=== PATIENT | male | born 1980 | race Asian ===

== ENCOUNTER 2019-06-10 21:08 | Inpatient (IN) | payer OTHER ==
--- NOTE | 2019-06-10 21:34 | PDOC ---
Rapid Medical Evaluation Medical Evaluation: I have performed a brief in-person evaluation of this patient. The patient presents with a chief complaint of: sent by urologist Dr. Gracia for admission for surgery for L kidney stones; had CT A/P done today showing 5x7x11 mm stone in L ureter (patient has report with him); of note, Dr. Claudio welch called and states patient is scheduled for surgery tomorrow at 8 AM Pertinent physical exam findings: In NAD I have ordered the following: Labs, IVF The patient will proceed to the ED for further evaluation. 06/10/19 21:30 Discharge Disposition - Referrals Referrals: Felipe Gracia MD [Primary Care Provider] - - Patient Instructions - Post Discharge Activity
[2019-06-10 21:35] VITALS: BMI 28.2
[2019-06-10] MEDS ORDERED: SODIUM CHLORIDE 1,000 ML IV STA (21:35)
[2019-06-10 22:08] LABS: BASO % 0.7 % (0-2.0); EOS % 0.3 % (0-4.5); HEMATOCRIT 44.7 % (35.4-49); LYMPH % 16.3 % (8-40); MCH 30.9 pg (25.7-33.7); MCHC 33.5 g/dl (32.0-35.9); MEAN CELL VOLUME 92.3 fl (80-96); MEAN PLT VOLUME 7.1 fl (7.5-11.1); MONO % 11.3 % (3.8-10.2); NEUT % 71.4 % (42.8-82.8); PLATELET COUNT 256 K/MM3 (134-434); RBC 4.85 M/mm3 (4.00-5.60); RDW 12.4 % (11.9-15.9); WHITE BLOOD COUNT 11.7 K/mm3 (4.0-10.0)
[2019-06-10 22:32] LABS: BILIRUBIN,TOTAL 0.6 mg/dL (0.2-1); BLOOD UREA NITROGEN 14.1 mg/dL (7-18); CREATININE 1.6 mg/dL (0.55-1.3); POTASSIUM 3.8 mmol/L (3.5-5.1); TOT PROT 7.1 g/dl (6.4-8.2)
--- NOTE | 2019-06-10 22:33 | PDOC ---
History of Present Illness - General Chief Complaint: Urinary Problem Stated Complaint: REF'D BY PCP Time Seen by Provider: 06/10/19 21:30 - History of Present Illness Initial Comments: 06/10/19 22:26 CHIEF COMPLAINT: admission for operatoin HISTORY OF PRESENT ILLNESS: 39 yo M with hx of prediabetes (on Meformin) sent to ED by urology Samia for operation tomorrow. Patient was seen at [facility] this morning at 2am and diagnosed with a kidney stone measuring [id number] to L kidney. He was referred to Dr. Gracia whom he saw today, and was told by Dr. Gracia to come to this ER to be admitted for stone removal tomorrow .Patient reports taking Percocet for pain with relief. Patient reports vomiting twice this morning, otherwise no other symptoms. Patient's PCP is in [place] No recent travel or sick contacts. PAST MEDICAL HISTORY: Denies past medical history FAMILY HISTORY: Denies SOCIAL HISTORY: Denies tobacco, alcohol, illicit drug use. SURGICAL HISTORY: Denies ALLERGIES: No known drug allergies REVIEW OF SYSTEMS General/Constitutional: Denies fever or chills. Denies weakness, weight change. HEENT: Denies change in vision. Denies ear pain or discharge. Denies sore throat. Cardiovascular: Denies chest pain or shortness of breath. Respiratory: Denies cough, wheezing, or hemoptysis. Gastrointestinal:Two episodes of vomiting this morning, none at this time. Denies diarrhea or constipation. Denies rectal bleeding. Genitourinary: Denies dysuria, frequency, or change in urination. Musculoskeletal: Denies joint or muscle swelling or pain. Denies neck or back pain. Skin and breasts: Denies rash or easy bruising. Neurologic: Denies headache, vertigo, loss of consciousness, or loss of sensation. Psychiatric: Denies depression or anxiety. PHYSICAL EXAM General Appearance: Well-appearing, appropriately dressed. No apparent distress , no intoxication. HEENT: EOMI, PERRLA, normal ENT inspection, normal voice, TMs normal, pharynx normal. No conjunctival pallor. No photophobia, scleral icterus. Neck: Supple. Trachea midline. No tenderness, rigidity, carotid bruit, stridor , lymphadenopathy, or thyromegaly. Respiratory/Chest: Lungs CTAB. No shortness of breath, chest tenderness, respiratory distress, accessory muscle use. No crackles, rales, rhonchi, stridor , wheezing, dullness Cardiovascular: RRR. S1, S2. No JVD, murmur, bradycardia, tachycardia. Vascular Pulses: Dorsalis-Pedis (R): 2+, Dorsalis-Pedis (L): 2+ Gastrointestinal/Abdominal: Normal bowel sounds. Abdomen soft, non-distended. No tenderness or rebound tenderness. No organomegaly, pulsatile mass, guarding , hernia, hepatomegaly, splenomegaly. Lymphatic: No adenopathy, tenderness. Musculoskeletal/Extremities: Mild L CVAT tenderness. Normal inspection. FROM of all extremities, normal capillary refill. Pelvis Stable. No CVA tenderness. No tenderness to extremities, pedal edema, swelling, erythema or deformity. Integumentary: Appropriate color, dry, warm. 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 Fully oriented, alert. Appropriate mood/affect. Motor strength 5/5. No appreciable EOM palsy, facial droop or sensory deficit. Past History - Past Medical History Allergies/Adverse Reactions: Allergies Allergy/AdvReac Type Severity Reaction Status Date / Time No Known Allergies Allergy Verified 06/10/19 21:35 Home Medications: Ambulatory Orders Metformin HCl [Glucophage] 500 mg PO HS 06/10/19 COPD: No Kidney Stones: Yes - Suicide/Smoking/Psychosocial Hx Smoking History: Never smoked Have you smoked in the past 12 months: No Information on smoking cessation initiated: No Hx Alcohol Use: No Drug/Substance Use Hx: No *Physical Exam - Vital Signs Last Vital Signs Temp Pulse Resp BP Pulse Ox 98.1 F 106 H 16 132/90 100 06/10/19 21:32 06/10/19 21:32 06/10/19 21:32 06/10/19 21:32 06/10/19 21:32 ED Treatment Course - LABORATORY CBC & Chemistry Diagram: 06/10/19 21:53 06/10/19 21:53 - ADDITIONAL ORDERS Additional order review: Laboratory Results 06/10/19 21:53 PTT (Actin FS) 28.7 06/10/19 21:53 RBC 4.85 MCV 92.3 MCHC 33.5 RDW 12.4 MPV 7.1 L Neutrophils % 71.4 Lymphocytes % 16.3 Monocytes % 11.3 H Eosinophils % 0.3 Basophils % 0.7 Medical Decision Making - Medical Decision Making 06/10/19 22:33 39 yo M with hx of prediabetes (on Meformin) sent to ED by urology Samia for operation tomorrow. -pre op labs *DC/Admit/Observation/Transfer Diagnosis at time of Disposition: Kidney stone - Discharge Dispostion Decision to Admit order: Yes - Referrals Referrals: Felipe Gracia MD [Primary Care Provider] - - Patient Instructions - Post Discharge Activity
[2019-06-10 22:39] LABS: INR 1.05 (0.83-1.09); PROTHROMBIN TIME (PATIENT) 12.4 SEC (9.7-13.0)
[2019-06-10] MEDS ORDERED: SODIUM CHLORIDE 1,000 ML IV SCH (23:45)
[2019-06-10] MEDS ORDERED: oxyCODONE HCL 5 MG TABLET PO PRN (23:45)
[2019-06-10] MEDS ORDERED: ACETAMINOPHEN 325 MG TABLET (FP) PO PRN (23:45)
--- NOTE | 2019-06-10 23:47 | HP ---
CHIEF COMPLAINT: Left Ureteral calculus PCP: HISTORY OF PRESENT ILLNESS: 39 y/o M with PMHx of Prediabetes (on Metformin) presents with Left Ureteral calculus. Patient was in his usual state of health yesterday morning and tolerated breakfast without any nausea or vomiting. After eating a heavy lunch, patient napped and upon waking, he felt sudden onset 5/10 Sharp LLQ pain with radiation to his groin. This pain felt similar to previous kidney stone he had 7 -8 years ago, which was 5-6mm and passed without intervention. The pain would wax and wane for which the patient tried Ibproufen with relief. After dinner yesterday evening, Patient had sudden onset 8/10 pain that persisted despited Ibproufen use prompting [facility]. While there, a CT A/P with oral and IV contrast revealed a [id number] Left ureteral calculus; Lab work revealed WBC 12.7, UA with 1+ Ketone, 2+ Blood, Negative nitrite and LE. Patient was discharged on Ciprofloxacin and Percocet, and advised for outpatient Urology follow up. Patient visited Dr. Gracia this afternoon and was advised to proceed to [facility] for admission for lithotripsy tomorrow 06/11. Endorses Chills and NBNB Vomiting x2. Denies any fevers, chill, chest pain, SOB , diarrhea, constipation. 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 NECK: No JVD LUNGS: Clear to auscultation bilaterally. No wheezes, no crackles. HEART: Regular rate and rhythm, normal S1 and S2 without murmur ABDOMEN: Soft, Tender to palpation in LLQ, not distended, + bowel sounds, no guarding, no rebound MUSCULOSKELETAL: + Left CVA tenderness, +LLoyds punch EXTREMITIES: 2+ pulses, No peripheral edema. NEUROLOGICAL: Cranial nerves II-XII intact. Normal speech. SKIN: Warm, dry Laboratory Results - last 24 hr 06/10/19 06/10/19 06/10/19 21:53 21:53 21:53 WBC 11.7 H RBC 4.85 Hgb 15.0 Hct 44.7 MCV 92.3 MCH 30.9 MCHC 33.5 RDW 12.4 Plt Count 256 MPV 7.1 L Absolute Neuts (auto) 8.4 H Neutrophils % 71.4 Lymphocytes % 16.3 Monocytes % 11.3 H Eosinophils % 0.3 Basophils % 0.7 Nucleated RBC % 0 PT with INR INR PTT (Actin FS) 28.7 Sodium 138 Potassium 3.8 Chloride 107 Carbon Dioxide 25 Anion Gap 7 L BUN 14.1 Creatinine 1.6 H Est GFR (CKD-EPI)AfAm 62.41 Est GFR (CKD-EPI)NonAf 53.85 Random Glucose 125 H Calcium 9.0 Total Bilirubin 0.6 AST 21 ALT 44 Alkaline Phosphatase 57 Total Protein 7.1 Albumin 4.0 Blood Type Antibody Screen 06/10/19 06/10/19 21:53 22:24 WBC RBC Hgb Hct MCV MCH MCHC RDW Plt Count MPV Absolute Neuts (auto) Neutrophils % Lymphocytes % Monocytes % Eosinophils % Basophils % Nucleated RBC % PT with INR 12.40 INR 1.05 PTT (Actin FS) Sodium Potassium Chloride Carbon Dioxide Anion Gap BUN Creatinine Est GFR (CKD-EPI)AfAm Est GFR (CKD-EPI)NonAf Random Glucose Calcium Total Bilirubin AST ALT Alkaline Phosphatase Total Protein Albumin Blood Type A POSITIVE Antibody Screen Negative Active Medications Acetaminophen (Tylenol -) 650 mg PO Q4H PRN PRN Reason: FEVER Sodium Chloride (Normal Saline -) 1,000 mls @ 100 mls/hr IV ASDIR ALVAREZ Last Admin: 06/10/19 23:56 Dose: 100 mls/hr Insulin Aspart (Novolog Vial Sliding Scale -) 1 vial SQ [facility]; Protocol Morphine Sulfate (Morphine Injection -) 2 mg IM Q4H PRN PRN Reason: PAIN LEVEL 6-10 Ondansetron HCl (Zofran Injection) 2 mg IVPUSH Q4H PRN PRN Reason: NAUSEA AND/OR VOMITING ASSESSMENT/PLAN: 39 y/o M with PMHx of Prediabetes (on Metformin) presents with Left Ureteral calculus. #Left Ureteral calculus -Afebrile, Hemodynamically stable -Imaging and UA done at [facility], patient provide records; Other pre-op labs noted above -Analgesia via Morphine, Acetaminophen -Antiemesis via Zofran -IV Hydration via NS @ 100 -Urology (Dr. Gracia) Consulted for surgical intervention tomorrow -Strian Urine, Monitor urine output Cr -Keep NPO for procedure tomorrow -Renal US to r/o hydronephrosis #PALMIRA -Likely due to obstruction -IV Hydration -Renal US to r/o hydro -UA #Prediabetes -ISS BGMs ACHS #FEN -IVF -Replete Lytes PRN -NPO for procedure tomorrow #PPx -DVT: SCDs Dispo: Admit to Med-surg Visit type - Emergency Visit Emergency Visit: Yes ED Registration Date: 06/10/19 Care time: The patient presented to the Emergency Department on the above date and was hospitalized for further evaluation of their emergent condition. - New Patient This patient is new to me today: Yes Date on this admission: 06/11/19 - Critical Care Critical Care patient: No ATTENDING PHYSICIAN STATEMENT I saw and evaluated the patient. I reviewed the resident's note and discussed the case with the resident. I agree with the resident's findings and plan as documented. SUBJECTIVE: OBJECTIVE: ASSESSMENT AND PLAN:
[2019-06-10] MEDS ORDERED: MORPHINE SULFATE 2 MG/ML VIAL IM PRN (23:54)
[2019-06-10] MEDS ORDERED: ONDANSETRON 4 MG/2 ML VIAL IVPUSH PRN (23:55)
--- NOTE | 2019-06-11 02:14 | PN ---
Teaching Attending Note Name of Resident: Jessenia Pena ATTENDING PHYSICIAN STATEMENT I saw and evaluated the patient. I reviewed the resident's note and discussed the case with the resident. I agree with the resident's findings and plan as documented. SUBJECTIVE: 39yo man with prediabetes with sudden onset left flank pain 06/10, sent by urology to [facility] for stone left ureter stone removal. Was seen at outside ER which showed [id number] left ureter calculous. Was prescribed cirpofloxacin and percocet earlier. Reports one past episode of kidney stone which resolved spontaneously. OBJECTIVE: Last Vital Signs Temp Pulse Resp BP Pulse Ox 98.1 F 106 H 16 132/90 100 06/10/19 21:32 06/10/19 21:32 06/10/19 21:32 06/10/19 21:32 06/10/19 21:32 gen -aaox3 heent- at, nc cv-s1+s2+rrr chest clear abd - left cva tenderness ext -no edema Abnormal Lab Results 06/10/19 06/10/19 21:53 21:53 WBC 11.7 H MPV 7.1 L Absolute Neuts (auto) 8.4 H Monocytes % 11.3 H Anion Gap 7 L Creatinine 1.6 H Random Glucose 125 H ASSESSMENT AND PLAN: left ureter stone -[id number], symptomatic for stone removal in am -med/surg -renal u/s to assess for hydronephrosis -iv fluid hydration -ua -unclear if patient needs antibiotics at this time but may c/w cipro perioperatively -morphine iv prn for pain control -zofran IV if nausea or vomiting -npo for now -pt/ptt -type and screen -urology- Dr. Ben Noguera -scds for dvt ppx #PALIMRA vs ckd - no prior labs, cr- 1.6 likely postrenal secondary to left ureter stone obstruction
[2019-06-11 03:26] LABS: EPI CELLS 0.2 /HPF (0-5/HPF); HYALINE CASTS 0 /lpf (0-8); URINE APPEARANCE CLEAR; URINE BACTERIA 0 /hpf (NEGATIVE); URINE BILIRUBIN NEGATIVE (NEGATIVE); URINE COLOR YELLOW; URINE GLUCOSE (UA) NEGATIVE (NEGATIVE); URINE KETONE NEGATIVE (NEGATIVE); URINE LEUK ESTERASE NEGATIVE (NEGATIVE); URINE NITRITE NEGATIVE (NEGATIVE); URINE PROTEIN NEGATIVE (NEGATIVE); URINE RBC 3 /hpf (0-4); URINE UROBILINOGEN 0.2 mg/dL (0.2-1.0); URINE WBC 0 /hpf (0-5)
[2019-06-11] MEDS ORDERED: INSULIN SLIDING SCALE (NOVOLOG) 1 VIAL SQ SCH (07:00)
[2019-06-11] MEDS ORDERED: ONDANSETRON 4 MG/2 ML VIAL IVPUSH PRN ×3 (08:10→10:52)
[2019-06-11] MEDS ORDERED: LACTATED RINGERS SOLUTION 1,000 ML IV SCH ×2 (08:15→10:52)
[2019-06-11] MEDS ORDERED: MIDAZOLAM HCL 2 MG/2 ML SINGLE DOSE VIAL ONE (08:19)
[2019-06-11] MEDS ORDERED: PROPOFOL 20 ML ONE (08:19)
[2019-06-11] MEDS ORDERED: ePHEDrine SULFATE 50 MG/1 ML AMPULE ONE (08:20)
[2019-06-11] MEDS ORDERED: EPHEDRINE SULFATE/0.9% NACL/PF 50 MG/10 ML SYRINGE NR ONE (08:20)
[2019-06-11] MEDS ORDERED: LIDOCAINE HCL/PF 2% SDV 5ML VIAL ONE (08:20)
[2019-06-11] MEDS ORDERED: GENTAMICIN SO4 80 MG/2 ML VIAL IVPB ONE (08:38)
[2019-06-11] MEDS ORDERED: KETOROLAC TROMETHAMINE 30 MG/1 ML VIAL ONE (08:56)
[2019-06-11] MEDS ORDERED: GENTAMICIN SO4 80 MG/2 ML VIAL ONE (08:56)
[2019-06-11] MEDS ORDERED: DEXAMETHASONE SOD PHOSPHATE 4 MG/1 ML VIAL ONE (08:56)
[2019-06-11 09:13] LABS: BASO % 0.5 % (0-2.0); EOS % 0.4 % (0-4.5); HEMATOCRIT 42.7 % (35.4-49); HEMOGLOBIN 14.6 GM/dL (11.7-16.9); LYMPH % 20.8 % (8-40); MCH 31.5 pg (25.7-33.7); MCHC 34.2 g/dl (32.0-35.9); MEAN PLT VOLUME 7.3 fl (7.5-11.1); NEUT % 68.3 % (42.8-82.8); PLATELET COUNT 250 K/MM3 (134-434); RBC 4.64 M/mm3 (4.00-5.60); RDW 12.8 % (11.9-15.9); WHITE BLOOD COUNT 10.8 K/mm3 (4.0-10.0)
[2019-06-11 09:19] LABS: BLOOD UREA NITROGEN 12.4 mg/dL (7-18); CALCIUM 8.5 mg/dL (8.5-10.1); CREATININE 1.5 mg/dL (0.55-1.3)
--- NOTE | 2019-06-11 10:29 | CONSULT ---
Consult - text type - Consultation Consultation Note: CC: left obstructive ureteral stone hpi: patient with history of left 1+ cm mid ureteral stone with obstruction and complaints of chills with nausea and vomiting. patient is in distress PE afeb 8/[address] scan reviewed discussed risks and benefits of surgery x 25 minutes with present creatinine has risen to 1.6 with leukocytosis imp left ureteral stone with obstruction acute renal injury leukocytosis on antibiotics with obstructed left kidney plan cyto/left stent/possible laser lithotripsy
--- NOTE | 2019-06-11 10:33 | OP ---
Operative Note - Note: Operative Date: 06/11/19 Pre-Operative Diagnosis: left obstructing ureteral stone/acute renal injury/ leukocytosis Operation: cystoscopy/left ureteroscopic laser lithotripsy and stone basketing with stent placement Findings: high grade left mid ureteral obstruction secondary to one plus cm. stone with grade 4/5 hydroureteronephrosis Post-Operative Diagnosis: Same as Pre-op Surgeon: Felipe Gracia Anesthesia: General Specimens Removed: stone Drains & Tubes with Location: 02/11 left ureteral stent Operative Report Dictated: Yes
[2019-06-11] MEDS ORDERED: MORPHINE SULFATE 2 MG/ML VIAL IM PRN (10:52)
[2019-06-11] MEDS ORDERED: ACETAMINOPHEN 325 MG TABLET (FP) PO PRN (10:52)
--- NOTE | 2019-06-11 11:18 | OP ---
DATE OF OPERATION: 06/11/2019 PREOPERATIVE DIAGNOSES: 1. Obstructing left ureteral stone with hydronephrosis. 2. Acute renal injury. 3. Leukocytosis. ATTENDING: Roshan Wheeler MD ANESTHESIA: General. PROCEDURE: Cystoscopy, left retrograde pyelogram, left ureteroscopic laser lithotripsy, left ureteroscopic stone basketing, left ureteral stent placement. DESCRIPTION OF OPERATION: The patient has a history of a 3-xrlw-[id number] mid-ureteral stone which was diagnosed at [facility]. The patient was discharged from [facility] with the stone untreated and instructed to find an urologist. Patient presented to my office with a CT scan report and disc. These were reviewed, and there was an obstructing left ureteral stone with high-grade hydroureteronephrosis. The patient had also complained of chills and was placed on antibiotics and instructed to go to the hospital for evaluation. The patient was brought to the emergency room and was found to have an acute renal injury with a rising creatinine and an elevated white blood count. The patient was started on antibiotics. The patient was evaluated on Thursday morning, and it was decided to the patient emergently to the operating room due to the rising creatinine and leukocytosis as well as the inability to maintain a diet. All risks and benefits were explained to both the patient and his . Patient accepted all risks and benefits and was taken to the operating room. Patient was brought to the operating room, placed in a supine position on the operating room table. Anesthesia was administered to the patient. The patient had been on Levaquin intravenously. A dose of gentamicin was administered. At this point, it must also be added that the patient has a history of diabetes which puts him at higher risk for renal injury and sepsis. The patient was placed in the dorsal lithotomy position, prepped and draped in the usual sterile manner. Cystoscopy was performed, and there was no evidence of stone within the bladder. No evidence of neoplasm was noted. A retrograde pyelogram showed a 1-gufy-roswimvdsn stone in the mid ureter with a grade 4/5 hydroureteronephrosis. A wire was placed with mild difficulty into the kidney without pushing the stone into the kidney. An ureteroscopy was then performed. A 5-tkrc-keoinhttzd stone was seen. At this point, a second wire was placed for insurance due to the size of the stone into the kidney under fluoroscopic visualization as well as direct ureteroscopic visualization. At this point, the ureteroscope was removed. Ureteroscopy was then performed, and a holmium laser fiber was utilized to fragment the stone. The stone was fragmented without complications. Stone fragments were sent to pathology for evaluation. A segment of the stone migrated proximally due to the water irrigation used during ureteroscopy. Due to efflux of obstructed urine which was also hematuric in nature, visualization within the renal pelvis was not possible. Due to the risk of infection and further renal injury, it was decided to leave the patient with a stent at this point and to have the patient follow up with an extracorporeal shock wave lithotripsy after an evaluation with a renal sonogram. The patient then had a 6-Azeri 24-cm stent placed into the left kidney utilizing the Seldinger technique under fluoroscopic visualization. No complications were noted. The patient tolerated the procedure very well. ROSHAN WHEELER M.D. [id number]
[2019-06-11] MEDS: INSULIN SLIDING SCALE (NOVOLOG) 1 VIAL SQ SCH ×3 (11:28→22:04)
--- NOTE | 2019-06-11 13:43 | PN ---
Physical Exam: SUBJECTIVE: Patient seen and examined pt is having some difficulty in passing urine and has some drops of blood in there no fever or chills no abdominal pains today. He has stone blasted today by lithotrypsy and stent was in place. I read the or notes by urologist. OBJECTIVE: Vital Signs Period Temp Pulse Resp BP Sys/Martinez Pulse Ox Last 24 Hr 98.1 F-99.0 F 81-113 16-20 117-143/71-97 96-100 GENERAL: The patient is awake, alert, and fully oriented, in no acute distress. HEAD: Normal with no signs of trauma. EYES: PERRL, extraocular movements intact, sclera anicteric, conjunctiva clear. No ptosis. ENT: Ears normal, nares patent, oropharynx clear without exudates, moist mucous membranes. NECK: Trachea midline, full range of motion, supple. LUNGS: Breath sounds equal, clear to auscultation bilaterally, no wheezes, no crackles, no accessory muscle use. HEART: Regular rate and rhythm, S1, S2 without murmur, rub or gallop. ABDOMEN: Soft, nontender, nondistended, normoactive bowel sounds, no guarding, no rebound, no hepatosplenomegaly, no masses. EXTREMITIES: 2+ pulses, warm, well-perfused, no edema. NEUROLOGICAL: Cranial nerves II through XII grossly intact. Normal speech, gait not observed. re Laboratory Results - last 24 hr 06/10/19 06/10/19 06/10/19 07:00 21:53 21:53 WBC 11.7 H RBC 4.85 Hgb 15.0 Hct 44.7 MCV 92.3 MCH 30.9 MCHC 33.5 RDW 12.4 Plt Count 256 MPV 7.1 L Absolute Neuts (auto) 8.4 H Neutrophils % 71.4 Lymphocytes % 16.3 Monocytes % 11.3 H Eosinophils % 0.3 Basophils % 0.7 Nucleated RBC % 0 PT with INR INR PTT (Actin FS) 28.7 Sodium Potassium Chloride Carbon Dioxide Anion Gap BUN Creatinine Est GFR (CKD-EPI)AfAm Est GFR (CKD-EPI)NonAf POC Glucometer Random Glucose Calcium Total Bilirubin AST ALT Alkaline Phosphatase Total Protein Albumin Urine Color Urine Appearance Urine pH Ur Specific Corrigan Urine Protein Urine Glucose (UA) Urine Ketones Urine Blood Urine Nitrite Urine Bilirubin Urine Urobilinogen Ur Leukocyte Esterase Urine WBC (Auto) Urine RBC (Auto) Urine Casts (Auto) U Epithel Cells (Auto) Urine Bacteria (Auto) Blood Type A POSITIVE Antibody Screen 06/10/19 06/10/19 06/10/19 21:53 21:53 22:24 WBC RBC Hgb Hct MCV MCH MCHC RDW Plt Count MPV Absolute Neuts (auto) Neutrophils % Lymphocytes % Monocytes % Eosinophils % Basophils % Nucleated RBC % PT with INR 12.40 INR 1.05 PTT (Actin FS) Sodium 138 Potassium 3.8 Chloride 107 Carbon Dioxide 25 Anion Gap 7 L BUN 14.1 Creatinine 1.6 H Est GFR (CKD-EPI)AfAm 62.41 Est GFR (CKD-EPI)NonAf 53.85 POC Glucometer Random Glucose 125 H Calcium 9.0 Total Bilirubin 0.6 AST 21 ALT 44 Alkaline Phosphatase 57 Total Protein 7.1 Albumin 4.0 Urine Color Urine Appearance Urine pH Ur Specific Corrigan Urine Protein Urine Glucose (UA) Urine Ketones Urine Blood Urine Nitrite Urine Bilirubin Urine Urobilinogen Ur Leukocyte Esterase Urine WBC (Auto) Urine RBC (Auto) Urine Casts (Auto) U Epithel Cells (Auto) Urine Bacteria (Auto) Blood Type A POSITIVE Antibody Screen Negative 06/11/19 06/11/19 06/11/19 02:33 06:19 07:00 WBC 10.8 H RBC 4.64 Hgb 14.6 Hct 42.7 MCV 92.0 MCH 31.5 MCHC 34.2 RDW 12.8 Plt Count 250 MPV 7.3 L Absolute Neuts (auto) 7.4 Neutrophils % 68.3 Lymphocytes % 20.8 D Monocytes % 10.0 Eosinophils % 0.4 Basophils % 0.5 Nucleated RBC % 0 PT with INR INR PTT (Actin FS) Sodium Potassium Chloride Carbon Dioxide Anion Gap BUN Creatinine Est GFR (CKD-EPI)AfAm Est GFR (CKD-EPI)NonAf POC Glucometer 113 Random Glucose Calcium Total Bilirubin AST ALT Alkaline Phosphatase Total Protein Albumin Urine Color Yellow Urine Appearance Clear Urine pH 6.0 Ur Specific Corrigan 1.009 L Urine Protein Negative Urine Glucose (UA) Negative Urine Ketones Negative Urine Blood Trace Urine Nitrite Negative Urine Bilirubin Negative Urine Urobilinogen 0.2 Ur Leukocyte Esterase Negative Urine WBC (Auto) 0 Urine RBC (Auto) 3 Urine Casts (Auto) 0 U Epithel Cells (Auto) 0.2 Urine Bacteria (Auto) 0 Blood Type Antibody Screen 06/11/19 06/11/19 07:00 11:20 WBC RBC Hgb Hct MCV MCH MCHC RDW Plt Count MPV Absolute Neuts (auto) Neutrophils % Lymphocytes % Monocytes % Eosinophils % Basophils % Nucleated RBC % PT with INR INR PTT (Actin FS) Sodium 141 Potassium 4.0 Chloride 110 H Carbon Dioxide 25 Anion Gap 6 L BUN 12.4 Creatinine 1.5 H Est GFR (CKD-EPI)AfAm 67.48 Est GFR (CKD-EPI)NonAf 58.22 POC Glucometer 135 Random Glucose 110 H Calcium 8.5 Total Bilirubin AST ALT Alkaline Phosphatase Total Protein Albumin Urine Color Urine Appearance Urine pH Ur Specific Corrigan Urine Protein Urine Glucose (UA) Urine Ketones Urine Blood Urine Nitrite Urine Bilirubin Urine Urobilinogen Ur Leukocyte Esterase Urine WBC (Auto) Urine RBC (Auto) Urine Casts (Auto) U Epithel Cells (Auto) Urine Bacteria (Auto) Blood Type Antibody Screen Active Medications Generic Name Dose Route Start Last Admin Trade Name Freq PRN Reason Stop Dose Admin Acetaminophen 650 mg 06/11/19 10:52 Tylenol - PO Q4H PRN FEVER Insulin Aspart 1 vial 06/11/19 11:00 06/11/19 11:28 Novolog Vial Sliding Scale - SQ Not Given ACHS ALVAREZ Protocol Morphine Sulfate 2 mg 06/11/19 10:52 Morphine Sulfate IM Q4H PRN PAIN LEVEL 6-10 Ondansetron HCl 2 mg 06/11/19 10:52 Zofran Injection IVPUSH Q4H PRN NAUSEA AND/OR VOMITING Ondansetron HCl 4 mg 06/11/19 10:52 Zofran Injection IVPUSH 06/11/19 15:00 Q6H PRN NAUSEA AND/OR VOMITING ASSESSMENT/PLAN: Renal stones s/p lithortypsy He is having difficulty passing urine but has no fever advsied to drink more water at this time. He did not had uti on his urine so doest need any abx , apart from he received gentamicin in or before the stent . discussed with patient if he stays stable and passes urine without difficulty will disharge home. 5 pm He was unable to urinate and had to have straight cath and 1000 cc of urine came out and later he was unable to urinate and folys is inserted.Urologist knows about it and will reevaluate in am Visit type - Emergency Visit Emergency Visit: Yes ED Registration Date: 06/10/19 Care time: The patient presented to the Emergency Department on the above date and was hospitalized for further evaluation of their emergent condition. - New Patient This patient is new to me today: Yes Date on this admission: 06/11/19 - Critical Care Critical Care patient: No - Discharge Referral Referred to [facility] No
[2019-06-11] MEDS ORDERED: TAMSULOSIN HCL 0.4 MG CAP PO ONE (14:30)
[2019-06-12] MEDS: INSULIN SLIDING SCALE (NOVOLOG) 1 VIAL SQ SCH ×2 (06:00→11:33)
--- NOTE | 2019-06-12 09:18 | PN ---
Teaching Attending Note Name of Resident: Jessenia Pena ATTENDING PHYSICIAN STATEMENT I saw and evaluated the patient. I reviewed the resident's note and discussed the case with the resident. I agree with the resident's findings and plan as documented. SUBJECTIVE: OBJECTIVE: Vital Signs Temperature 98.4 F 06/12/19 05:00 Pulse Rate 109 H 06/12/19 05:00 Respiratory Rate 18 06/12/19 05:00 Blood Pressure 130/79 06/12/19 05:00 O2 Sat by Pulse Oximetry (%) 97 06/11/19 21:00 Young man comfortable not in distress HEENT: Mm moist, no anemia NECK: No JVD No Bruit CHEST: CTA B/L CVS: S1S2 R ABD: No distention, non tender BS + EXT: No edema feet, no calf tenderness [employer]MENT TENDER: AOX3 non focal' CBC, BMP 06/11/19 07:00 06/11/19 07:00 ASSESSMENT AND PLAN:39 y/o M with PMHx of Prediabetes (on Metformin) presented with Left Ureteral calculus. admitted with :Left renal colic underwent stent placement developed urinary retention yesterday now resolved, cleared by to DC home Plan; Dc Home Po Hydration F/U hold metformin till Creatinine is high
--- NOTE | 2019-06-12 12:41 | DS ---
Physical Exam: SUBJECTIVE: Patient seen and examined this AM, ambulating in the hallway. Had some difficulty with urination requiring north placement overnight however was able to void this AM. Pain has improved. Denies any fevers, chills, chest pain, SOB, nausea, vomiting, diarrhea, constipation. OBJECTIVE: Vital Signs Period Temp Pulse Resp BP Sys/Martinez Pulse Ox Last 24 Hr 98.0 F-98.4 F 95-109 18-18 122-136/77-93 96-97 PHYSICAL EXAM GENERAL: A&Ox3, NAD HEAD: NCAT EYES: PERRL, EOMI ENT: Moist mucous membranes NECK: No JVD LUNGS: Clear to auscultation bilaterally. No wheezes, no crackles. HEART: Regular rate and rhythm, normal S1 and S2 without murmur ABDOMEN: Soft, nontender, not distended, + bowel sounds, no guarding, no rebound EXTREMITIES: 2+ pulses, No peripheral edema. NEUROLOGICAL: Cranial nerves II-XII intact. Normal speech. SKIN: Warm, dry LABS Laboratory Last Values WBC 10.8 K/mm3 (4.0-10.0) H 06/11/19 07:00 RBC 4.64 M/mm3 (4.00-5.60) 06/11/19 07:00 Hgb 14.6 GM/dL (11.7-16.9) 06/11/19 07:00 Hct 42.7 % (35.4-49) 06/11/19 07:00 MCV 92.0 fl (80-96) 06/11/19 07:00 MCH 31.5 pg (25.7-33.7) 06/11/19 07:00 MCHC 34.2 g/dl (32.0-35.9) 06/11/19 07:00 RDW 12.8 % (11.9-15.9) 06/11/19 07:00 Plt Count 250 K/MM3 (134-434) 06/11/19 07:00 MPV 7.3 fl (7.5-11.1) L 06/11/19 07:00 Absolute Neuts (auto) 7.4 K/mm3 (1.5-8.0) 06/11/19 07:00 Neutrophils % 68.3 % (42.8-82.8) 06/11/19 07:00 Lymphocytes % 20.8 % (8-40) D 06/11/19 07:00 Monocytes % 10.0 % (3.8-10.2) 06/11/19 07:00 Eosinophils % 0.4 % (0-4.5) 06/11/19 07:00 Basophils % 0.5 % (0-2.0) 06/11/19 07:00 Nucleated RBC % 0 % (0-0) 06/11/19 07:00 PT with INR 12.40 SEC (9.7-13.0) 06/10/19 22:24 INR 1.05 (0.83-1.09) 06/10/19 22:24 PTT (Actin FS) 28.7 SECONDS (25.2-36.5) 06/10/19 21:53 Sodium 141 mmol/L (136-145) 06/11/19 07:00 Potassium 4.0 mmol/L (3.5-5.1) 06/11/19 07:00 Chloride 110 mmol/L (98-107) H 06/11/19 07:00 Carbon Dioxide 25 mmol/L (21-32) 06/11/19 07:00 Anion Gap 6 MMOL/L (8-16) L 06/11/19 07:00 BUN 12.4 mg/dL (7-18) 06/11/19 07:00 Creatinine 1.5 mg/dL (0.55-1.3) H 06/11/19 07:00 Est GFR (CKD-EPI)AfAm 67.48 06/11/19 07:00 Est GFR (CKD-EPI)NonAf 58.22 06/11/19 07:00 POC Glucometer 163 UNITS (80-120) 06/12/19 11:32 Random Glucose 110 mg/dL (74-106) H 06/11/19 07:00 Calcium 8.5 mg/dL (8.5-10.1) 06/11/19 07:00 Total Bilirubin 0.6 mg/dL (0.2-1) 06/10/19 21:53 AST 21 U/L (15-37) 06/10/19 21:53 ALT 44 U/L (13-61) 06/10/19 21:53 Alkaline Phosphatase 57 U/L (45-117) 06/10/19 21:53 Total Protein 7.1 g/dl (6.4-8.2) 06/10/19 21:53 Albumin 4.0 g/dl (3.4-5.0) 06/10/19 21:53 Urine Color Yellow 06/11/19 02:33 Urine Appearance Clear 06/11/19 02:33 Urine pH 6.0 (5.0-8.0) 06/11/19 02:33 Ur Specific [place] 1.009 (1.010-1.035) L 06/11/19 02:33 Urine Protein Negative (NEGATIVE) 06/11/19 02:33 Urine Glucose (UA) Negative (NEGATIVE) 06/11/19 02:33 Urine Ketones Negative (NEGATIVE) 06/11/19 02:33 Urine Blood Trace (NEGATIVE) 06/11/19 02:33 Urine Nitrite Negative (NEGATIVE) 06/11/19 02:33 Urine Bilirubin Negative (NEGATIVE) 06/11/19 02:33 Urine Urobilinogen 0.2 mg/dL (0.2-1.0) 06/11/19 02:33 Ur Leukocyte Esterase Negative (NEGATIVE) 06/11/19 02:33 Urine WBC (Auto) 0 /hpf (0-5) 06/11/19 02:33 Urine RBC (Auto) 3 /hpf (0-4) 06/11/19 02:33 Urine Casts (Auto) 0 /lpf (0-8) 06/11/19 02:33 U Epithel Cells (Auto) 0.2 /HPF (0-5/HPF) 06/11/19 02:33 Urine Bacteria (Auto) 0 /hpf (NEGATIVE) 06/11/19 02:33 Blood Type A POSITIVE 06/10/19 21:53 Antibody Screen Negative 06/10/19 21:53 Microbiology 06/11/19 14:20 Urine - Urine - Catheterized Urine Culture - Final NO GROWTH OBTAINED IMAGING: -Kidney/Renal US: Mild fullness of the left pelvicalyceal system suggestive of minimal hydronephrosis.. No gross renal stones are identified. HOSPITAL COURSE: Date of Admission:06/10/19 Date of Discharge: 06/12/19 39 y/o M with PMHx of Prediabetes (on Metformin) presented with Left Ureteral calculus. Patient visited [facility] for similar pain the night before. During this visit, a CT A/P with oral and IV contrast revealed a [id number] Left ureteral calculus, Lab work revealed WBC 12.7, UA with 1+ Ketone, 2+ Blood, Negative nitrite and LE. Patient was discharged on Ciprofloxacin and Percocet, and advised for outpatient Urology follow up, however the following day, the pain became unbearable prompting him to contact Dr. Gracia who advised visiting [facility]. Patient underwent cystoscopy/left ureteroscopic laser lithotripsy and stone basketing with stent placement. Postoperatively, patient remained Afebrile and Hemodynamically stable. Imaging, micro and labwork noted above. His pain remained controlled with analgesia and he was transitioned to Acetaminophen. Patient developed urinary retention requiring north catheter placement that drained 2L of urine; he eventually was able to urinate without difficultly. He was found to have an elevated Cr on admission, which improved post operatively. Patient to be discharged home with strict instruction for follow up with Urology (to further manage his stent and stones) and with his PCP (to further manage his DM). Additionally he was advised to increase PO Hydration and hold metformin until his elevated Cr has resolved. Minutes to complete discharge: 36 Discharge Summary Reason For Visit: CALCULUS OF KIDNEY Condition: Stable - Instructions Diet, Activity, Other Instructions: You presented to the hospital with Kidney stones and underwent a lithotripsy with stent placement. Follow up with the following physicians: 1. PCP in one week, please call to schedule follow up to further manage your diabetes 2. Urology (Dr. Gracia) in one week, Please call to make an appointment. Your Workup is not complete until you do so. Continue to monitor your urine output. You can use tylenol for pain control. Please continue to monitor your diet as you need to intake less sugar and drink plenty of fluids. Please do not use metformin until you discuss further with your PCP and Urology , You will likely need to have your Creatinine (Kidney function) checked before beginning use. Continue all your other medications as prescribed Please return to the ER if you have any signs or symptoms of chest pain, shortness of breath, uncontrollable fever, chills, nausea, vomiting, numbness, tingling, or weakness in any part of your body, changes in vision, or slurred speech. Please return to the ER if symptoms persist, worsen, or new symptoms arise. Referrals: Felipe Gracia MD [Primary Care Provider] - Disposition: HOME - Home Medications Comprehensive Discharge Medication List: Ambulatory Orders Metformin HCl [Glucophage] 500 mg PO HS 06/10/19 This patient is new to me today: No Emergency Visit: Yes ED Registration Date: 06/10/19 Care time: The patient presented to the Emergency Department on the above date and was hospitalized for further evaluation of their emergent condition. Critical Care patient: No - Discharge Referral Referred to [facility] Med P.C.: No ATTENDING PHYSICIAN STATEMENT I saw and evaluated the patient. I reviewed the resident's note and discussed the case with the resident. I agree with the resident's findings and plan as documented. SUBJECTIVE: OBJECTIVE: ASSESSMENT AND PLAN:
[2019-06-12 14:05] VITALS: BP 111/84; PULSE 100; TEMP 98.3
--- NOTE | 2019-06-13 07:15 | EKG ---
Test Reason : Blood Pressure : / mmHG Vent. Rate : 099 BPM Atrial Rate : 099 BPM P-R Int : 168 ms QRS Dur : 094 ms QT Int : 338 ms P-R-T Axes : 049 -17 017 degrees QTc Int : 433 ms NORMAL SINUS RHYTHM POSSIBLE LEFT ATRIAL ENLARGEMENT INCOMPLETE RIGHT BUNDLE BRANCH BLOCK LEFT VENTRICULAR HYPERTROPHY ABNORMAL ECG NO PREVIOUS ECGS AVAILABLE Confirmed by MARILIN CARLISLE MD ([id number]) on 06/13/2019 7:15:09 AM Referred By: Confirmed By:MARILIN CARLISLE MD
--- NOTE | 2019-06-14 17:02 | PATH ---
Surgical Pathology Report Patient Name: PARADISE WORLEY Med. Rec. #: [id number] /Age/Gender: 1980 (Age: 39) / M Account: [id number] Location: [facility] MED/SURG Taken: 06/11/2019 Received: 06/13/2019 Reported: 06/14/2019 Physicians: Felipe Gracia Specimen(s) Received URETERAL STONE Clinical History Calculus of kidney Final Diagnosis URETERAL STONE, STONE BASKETING: URETEROLITHIASIS. MACROSCOPIC DIAGNOSIS. Electronically Signed Adri Still M.D. Gross Description Received fresh labeled "ureteral stone" is a 0.2 x 0.1 x 0.1 cm kramer-brown irregular to fragmented calculus. The specimen is sent for chemical analysis. MLSZ/06/13/2019 jorge/06/13/2019
== END 2019-06-12 02:00 | disposition home or self-care (01) | DRG 661 ==
LOC: JER 21:08 → JERBED 23:58 → J7W 06-11 01:38
PROVIDERS: ADMIT Internal Medicine; ATTEND Internal Medicine
PROC: BT1FZZZ Fluoroscopy of Left Kidney, Ureter and Bladder (ICD-10-PCS; 2019-06-11)
PROC: 0TC78ZZ Extirpation of Matter from Left Ureter, Via Natural or Artificial Opening Endoscopic (ICD-10-PCS; principal; 2019-06-11 08:00)
PROC: 0T778DZ Dilation of Left Ureter with Intraluminal Device, Via Natural or Artificial Opening Endoscopic (ICD-10-PCS; 2019-06-11 08:00)
DX: N13.2 Hydronephrosis with renal and ureteral calculous obstruction (principal); N17.9 Acute kidney failure, unspecified; D72.829 Elevated white blood cell count, unspecified; R10.32 Left lower quadrant pain; R33.9 Retention of urine, unspecified
CPT/HCPCS: 36415; 76000-TC-FY; 76775-TC; 80048; 80053; 81003; 82360; 82962; 85025; 85610; 85730; 86850; 86900; 86901; 87086; 88300-TC; 93005; 93010; 94010; 94760; 99285-25; J7030

== ENCOUNTER 2019-07-11 06:33 | Day surgery (SDC) | payer OTHER ==
[2019-07-08 09:20] VITALS: BMI 27.6
[2019-07-11] MEDS ORDERED: SUCCINYLCHOLINE CHLORIDE 200 MG/10 ML SYRINGE ONE (08:13)
[2019-07-11] MEDS ORDERED: MIDAZOLAM HCL 2 MG/2 ML SINGLE DOSE VIAL ONE (08:13)
--- NOTE | 2019-07-11 09:11 | OP ---
Operative Note - Note: Operative Date: 07/11/19 Pre-Operative Diagnosis: Left renal stone Operation: Left ESWL Findings: 5 mm lower renal pole stone Post-Operative Diagnosis: Same as Pre-op Surgeon: Felipe Gracia Anesthesia: Fractional Estimated Blood Loss (mls): 0 Drains, Volume Out (mls): 0 Operative Report Dictated: Yes
[2019-07-11 10:02] VITALS: BP 121/85; PULSE 77; TEMP 97.9
--- NOTE | 2019-07-11 18:24 | OP ---
DATE OF OPERATION: 07/11/2019 PREOPERATIVE DIAGNOSIS: Left renal stone. POSTOPERATIVE DIAGNOSIS: Left renal stone. PROCEDURE: Left extracorporeal shock-wave lithotripsy. ATTENDING: Roshan Wheeler MD ANESTHESIA: Fractional. DESCRIPTION OF PROCEDURE: Patient was brought in the operating room and placed in a supine position on the operating room table. Ultrasonography and fluoroscopy were performed. A left lower pole 5-mm stone was identified. At this point, anesthesia and preoperative antibiotics were administered. Shock-wave lithotripsy was then performed; 2500 impulses at 17 joules of power were administered to the stone. Excellent fragmentation of the stone was noted under real time ultrasonography and fluoroscopy. The patient tolerated the procedure very well. There were no complications noted. DISPOSITION: To the recovery room. ROSHAN WHEELER M.D. [id number]
== END 2019-07-11 09:30 | disposition home or self-care (01) ==
LOC: JASU-SURG 06:33
PROVIDERS: ATTEND Urology
PROC: 0TF4XZZ Fragmentation in Left Kidney Pelvis, External Approach (ICD-10-PCS; principal; 2019-07-11 08:00)
DX: N20.0 Calculus of kidney (principal)
CPT/HCPCS: 82962

== ENCOUNTER 2020-04-30 05:20 | Day surgery (SDC) | payer OTHER ==
[2020-04-26 10:49] VITALS: BMI 25.9
--- NOTE | 2020-04-30 17:35 | OP ---
Operative Note - Note: Operative Date: 04/30/20 Pre-Operative Diagnosis: Left renal stone Operation: Left ESWL Findings: 6 mm lower pole Left renal stone Post-Operative Diagnosis: Same as Pre-op Surgeon: Felipe Gracia Anesthesia: Regional Estimated Blood Loss (mls): 0 Operative Report Dictated: Yes
[2020-04-30 19:05] VITALS: BP 118/84; PULSE 80; TEMP 97.3
--- NOTE | 2020-04-30 20:54 | OP ---
DATE OF OPERATION: 04/30/2020 PREOPERATIVE DIAGNOSIS: Left renal stone. POSTOPERATIVE DIAGNOSIS: Left renal stone. PROCEDURE: Left extracorporeal shock wave lithotripsy. ATTENDING: Roshan Wheeler MD ANESTHESIA: Fractional. DESCRIPTION OF OPERATION: Patient was brought in the operating room and placed in supine position on the operating room table. Ultrasonography and fluoroscopy were performed. A 6-mm left lower pole stone was identified. Anesthesia and preoperative antibiotics were then administered. Shock wave lithotripsy was then started; 2500 impulses at 17 joules of power were administered to the 6-mm left lower pole stone. No complications were noted. The disposition of the patient was to the recovery room. ROSHAN WHEELER M.D. [id number]
== END 2020-04-30 19:03 | disposition home or self-care (01) ==
LOC: JASU-SURG 05:20
PROVIDERS: ATTEND Urology
PROC: 0TF4XZZ Fragmentation in Left Kidney Pelvis, External Approach (ICD-10-PCS; principal; 2020-04-30 16:00)
DX: N20.0 Calculus of kidney (principal)

== ENCOUNTER 2022-01-20 04:21 | Day surgery (SDC) | payer OTHER ==
[2022-01-15 19:19] VITALS: BMI 27.4
[2022-01-20] MEDS ORDERED: PROPOFOL 20 ML ONE (14:18)
[2022-01-20] MEDS ORDERED: DEXAMETHASONE SOD PHOSPHATE 4 MG/1 ML VIAL ONE (14:24)
[2022-01-20] MEDS ORDERED: KETOROLAC TROMETHAMINE 30 MG/1 ML VIAL ONE (14:24)
[2022-01-20 15:55] VITALS: BP 119/84; PULSE 86; TEMP 98
== END 2022-01-20 16:14 | disposition home or self-care (01) ==
LOC: JASU-SURG 04:21
PROVIDERS: ATTEND Urology
PROC: 0TF3XZZ Fragmentation in Right Kidney Pelvis, External Approach (ICD-10-PCS; principal; 2022-01-20 12:30)
DX: N20.0 Calculus of kidney (principal)

== ENCOUNTER 2022-04-01 04:25 | Day surgery (SDC) | payer OTHER ==
[2022-03-28 13:59] VITALS: BMI 26.6
[2022-04-01] MEDS ORDERED: MIDAZOLAM HCL 2 MG/2 ML SINGLE DOSE VIAL ONE (16:18)
[2022-04-01 17:42] VITALS: BP 120/85; PULSE 68; TEMP 97.5
== END 2022-04-01 18:48 | disposition home or self-care (01) ==
LOC: JASU-SURG 04:25
PROVIDERS: ATTEND Urology
PROC: 0TF4XZZ Fragmentation in Left Kidney Pelvis, External Approach (ICD-10-PCS; principal; 2022-04-01 16:00)
DX: N20.0 Calculus of kidney (principal)